=== PATIENT | male | born 2000 | race Two or more races ===

== ENCOUNTER 2025-03-01 00:45 | Emergency (ER) | payer SELFPAY ==
[2025-03-01 01:09] VITALS: BP 121/73; PULSE 85; RESP 18; TEMP 36.7; O2SAT 96
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
== END 2025-03-01 01:19 ==
LOC: SERX 01:30
PROVIDERS: Emergency Provider Emergency Medicine
DX: Z02.89 Encounter for other administrative examinations (principal); Z04.1 Encounter for examination and observation following transport accident
CPT/HCPCS: 99281